=== PATIENT | male | born 1955 | race Caucasian/White ===

== ENCOUNTER 2023-08-30 07:14 | Emergency (ER) | payer OTHER ==
[~2023-08-30] VITALS: Ht 175.3 cm; Wt 88.0 kg
[2023-08-30] MEDS ORDERED: LANTUS SOL100 UNIT/1 SUBCUTANEO (08:00)
[2023-08-30] MEDS ORDERED: METFORMIN HCL1000 MG (08:01)
[2023-08-30] MEDS ORDERED: CHLORTHALIDONE25 MG (08:03)
[2023-08-30] MEDS ORDERED: METFORMIN HCL1000 M2 (08:03)
[2023-08-30] MEDS ORDERED: ATORVASTATIN CA20 MG (08:04)
[2023-08-30] MEDS ORDERED: MONTELUKAST SOD10 MG PO (09:22)
[2023-08-30] MEDS ORDERED: DIABETIC TUSSI118 M3 PO (09:22)
== END 2023-08-30 09:35 | disposition home or self-care (01) ==
LOC: ER 07:14
DX: J06.9 Acute upper respiratory infection, unspecified (principal); E11.9 Type 2 diabetes mellitus without complications; Z79.4 Long term (current) use of insulin; Z88.0 Allergy status to penicillin; I10 Essential (primary) hypertension

== ENCOUNTER 2024-12-13 13:00 | Emergency (ER) | payer OTHER ==
[~2024-12-13] VITALS: Ht 175.3 cm; Wt 90.7 kg
[~2024-12-13 13:00] MED LIST: ATORVASTATIN CA20 MG; CHLORTHALIDONE25 MG; DIABETIC TUSSI118 M3 PO; LANTUS SOL100 UNIT/1 SUBCUTANEO; METFORMIN HCL1000 M2; METFORMIN HCL1000 MG; MONTELUKAST SOD10 MG PO
[2024-12-13] MEDS ORDERED: IPRATROPIUM/ALBUTEROL SULFATE 3 ML AMPUL.NEB IH SCH (15:30)
[2024-12-13 16:15] LABS: HEMATOCRIT 37.5 % (39.0-48.0); HEMOGLOBIN 12.8 g/dL (13-16.00); MEAN CELL VOLUME 85.8 fL (80.0-100.00); MEAN CORPUSCULAR HEMOGLOBIN 29.3 pg (27.00-32.0); MEAN CORPUSCULAR HGB CONC 34.1 g/dl (32.0-36.0); PLATELET COUNT 300 K/uL (150-450); RED BLOOD COUNT 4.37 M/uL (4.00-6.00); RED CELL DISTRIBUTION WIDTH 14.5 % (11.5-14.5)
[2024-12-13] MEDS ORDERED: IPRATROPIUM/ALBUTEROL SULFATE 3 ML AMPUL.NEB IH ONE (16:45)
[2024-12-13] MEDS ORDERED: BENZONATATE200 M1 PO (18:47)
== END 2024-12-13 18:46 | disposition home or self-care (01) ==
LOC: ER 13:03
DX: R53.81 Other malaise (principal); J06.9 Acute upper respiratory infection, unspecified; Z20.822 Contact with and (suspected) exposure to COVID-19; I10 Essential (primary) hypertension; E11.9 Type 2 diabetes mellitus without complications; Z79.4 Long term (current) use of insulin; Z79.84 Long term (current) use of oral hypoglycemic drugs; Z88.0 Allergy status to penicillin